=== PATIENT | male | born 1965 | race Caucasian/White ===

== ENCOUNTER → 2018-08-06 | Outpatient (CLI) | payer OTHER ==
--- NOTE | 2018-08-06 23:22 | MR ---
EXAMINATION TYPE: MR lumbar spine wo con DATE OF EXAM: 08/06/2018 COMPARISON: NONE HISTORY: Low back pain per order. Pain into right leg for 20 years after injury per patient. TECHNIQUE: Multiplanar, multisequence imaging of the lumbar spine is performed without IV contrast. FINDINGS: Sagittal images of the lumbar spine show vertebral body heights and alignment to appear sat isfactory. Some Schmorl nodes and superior and inferior L2 endplates are present. There is multilevel disc desiccation and disc space narrowing with relative sparing of the L3-L4 level. There is fairly moderate disc space narrowing L4-L5 and to a greater degree moderate to advanced disc space narrowin g L5-S1 level with vacuum disc phenomenon at this level seen. Small posterior disc herniations are se en L2-L3, L4-L5, and L5-S1 levels on sagittal images. The conus medullaris is normal in position and signal ending T12-L1 disc space level. The bone marrow signal intensity is within normal limits. Mil d multilevel anterior spurring is present. Axial images show the T12-L1 and L1-L2 levels to appear within normal limits. Axial images at L2-L3 level show mild to moderate broad disc bulge mildly effacing anterior thecal sa c. Bilateral neural foramina are patent. Axial images at the L3-L4 level mild broad disc bulge but the spinal canal is preserved and bilateral neural foramina are patent. Axial images at the L4-L5 level show mild to moderate facet degenerative changes and ligamentum flavu m hypertrophy. There is mild/moderate broad-based posterior disc protrusion effacing anterior thecal sac. There is mild to moderate left and mild right-sided anterior inferior neural foraminal narrowing . Some encroachment on left L4 nerve is difficult to exclude sagittal image 3 and axial image 9. Axial images at the L5-S1 level show broad-based right paracentral disc protrusion effacing anterior thecal sac and causing asymmetric [id number] right-sided inferior neural foraminal narrowing. L eft-sided neural foramen is patent. There are [id number] facet degenerative changes bilaterally . Disc herniation is best seen on sagittal image 10 encroaching towards the central right S1 nerve an d involving right lateral recess. No suspicious retroperitoneal findings are seen. IMPRESSION: Multilevel degenerative changes lumbar spine most prominent at L4-L5 and L5-S1 levels as detailed above. Attention to L5-S1 level where disc herniation is encroaching near central right S1 n erve.
== END | disposition home or self-care (01) ==
LOC: RADMRIMAIN 17:39
PROVIDERS: ATTEND Family Medicine
DX: M51.27 Other intervertebral disc displacement, lumbosacral region (principal); M47.817 Spondylosis without myelopathy or radiculopathy, lumbosacral region
CPT/HCPCS: 72148